=== PATIENT | female | born 1955 | race Caucasian/White ===

== ENCOUNTER 2022-01-29 12:07 | Emergency (ER) | payer BC, SELFPAY ==
[2022-01-29 12:13] VITALS: BP 180/99; PULSE 96; RESP 20; TEMP 35.9; O2SAT 96; BMI 41.2
--- NOTE | 2022-01-29 12:14 | CRLHL7_ITS ---
For Patients: As a result of the Century Cures Act, medical imaging exams and procedure reports are released immediately into your electronic medical record. You may view this report before your referring provider. If you have questions, please contact your health care provider. Indication: Injury and pain Technique: Right ankle 3 views. Comparison: None Findings: Plantar and posterior calcaneal spurs. Acute obliquely oriented fracture of the distal fibula. Mild degenerative changes. Lateral soft tissue swelling. Impression: Acute fracture of the distal fibula. Dictated by Patrick Lorenzana MD @ 01/29/2022 1:14:52 PM (Electronically Signed)
--- NOTE | 2022-01-29 12:14 | CRLHL7_ITS ---
For Patients: As a result of the Cures Act, medical imaging exams and procedure reports are released immediately into your electronic medical record. You may view this report before your referring provider. If you have questions, please contact your health care provider. Indication: Fall, pain Technique: Two views right knee Findings/Impression: Hardware from a right total knee arthroplasty is in satisfactory position. Bone alignment is normal. No sign of acute fracture. Postop changes are within normal limits. Dictated by Patrick Lorenzana MD @ 01/29/2022 1:15:35 PM (Electronically Signed)
--- NOTE | 2022-01-29 12:16 | ED.GENADULT ---
HPI - General Adult General Chief complaint: Extremity Pain/Injury, Lower Stated complaint: fall/right ankle knee injuries Time Seen by Provider: 01/29/22 12:09 Source: patient Mode of arrival: ambulatory Limitations: no limitations History of Present Illness HPI narrative: 66-year-old female presenting today with ankle and knee pain. She states that she slipped in her driveway and fell, leg twisting underneath her. Patient had total knee replacement on the right in August of this year. She is complaining of some mild knee pain as she landed on her knee but mostly her ankle is bothering her. Pain is located mostly on the lateral side. She denies hitting her head or having injuries to the upper extremities. She is not on any blood thinners. Related Data Home Medications Medication Instructions Recorded Confirmed No Known Home Medications 01/29/22 01/29/22 Allergies Allergy/AdvReac Type Severity Reaction Status Date / Time No Known Drug Allergies Allergy Verified 11/09/21 13:29 Review of Systems Status of ROS: Reports: 6 or more systems reviewed and unremarkable except as noted in History and below [facility] Medical History Anemia Chest pain Hiatal hernia History of trigger finger Low vitamin D level Partial seizure Sleep apnea Surgical History H/O blepharoplasty H/O hernia repair H/O tubal ligation History of appendectomy S/P right knee arthroscopy Status post total knee replacement, right Social History Smoking Status: Never smoker Do you use any of these nicotine containing products: None Second hand tobacco smoke exposure: No How often do you have a drink containing alcohol: 2-3 times a week How many standard drinks containing alcohol do you have on a typical day: 1 or 2 AUDIT-C Alcohol total score: 3 Non-prescribed substance use: denies use Exam Narrative: Exam Narrative: Alert and oriented. Answers questions appropriately. Mood and affect are appropriate. HEENT: Normocephalic atraumatic. Pupils are equally round reactive to light. Extraocular muscles are intact. Conjunctivae are moist without any icterus noted. Extremities: She does have some swelling over the right lateral ankle with tenderness over the lateral malleolus. She has a abrasion over the right knee with some tenderness just right over the abrasion however she has full range of motion at the knee without significant discomfort. No valgus or varus laxity. No pain over the batres or calf. No obvious bruising over the ankle. Const: Vital Signs, click to edit/add: Vital Signs - 24 hr 01/29/22 12:13 Temperature 96.7 F L Pulse Rate [Pulse Oximeter] 96 Respiratory Rate 20 Blood Pressure [Ri ght Upper Arm] 180/99 H Pulse Oximetry 96 Oxygen Delivery Me thod Room Air Course Course Hospital Course: Ankle x-ray, read by me, shows a distal fibular fracture. Knee x-ray, read by me, does not show any acute pathology. Vital Signs Vital signs: Initial Vital Signs Temperature 96.7 F L 01/29/22 12:13 Temperature Source Temporal Artery Scan 01/29/22 12:13 Pulse Rate 96 01/29/22 12:13 Respiratory Rate 20 01/29/22 12:13 Blood Pressure 180/99 H 01/29/22 12:13 Blood Pressure Mean 126 01/29/22 12:13 Blood Pressure Position Semi-Fowlers 01/29/22 12:13 Pulse Oximetry 96 01/29/22 12:13 Oxygen Delivery Method 01/29/22 12:13 Vital Signs Temperature 96.7 F L 01/29/22 12:13 Pulse Rate 96 01/29/22 12:13 Respiratory Rate 20 01/29/22 12:13 Blood Pressure 180/99 H 01/29/22 12:13 Pulse Oximetry 96 01/29/22 12:13 Oxygen Delivery Method 01/29/22 12:13 Temperature 96.7 F L 01/29/22 12:13 Pulse Rate 96 01/29/22 12:13 Respiratory Rate 20 01/29/22 12:13 Blood Pressure 180/99 H 01/29/22 12:13 Pulse Oximetry 96 01/29/22 12:13 Oxygen Delivery Method 01/29/22 12:13 Medical Decision Making MDM Narrative Medical decision making narrative: 66-year-old female with a distal fibular fracture. Patient will be placed in a cam walker. She will follow up with Ortho next week. Weight-bearing as tolerated. We discussed symptomatic treatment with elevation, icing and ibuprofen or Tylenol as needed. Patient had no other questions Imaging Data Ankle x-ray: Attestation: I have reviewed the pertinent imaging results. Radiologist's impression: Right ankle 3 views. Comparison: None Findings: Plantar and posterior calcaneal spurs. Acute obliquely oriented fracture of the distal fibula. Mild degenerative changes. Lateral soft tissue swelling. Impression: Acute fracture of the distal fibula. Knee x-ray: Attestation: I have reviewed the pertinent imaging results. Radiologist's impression: Two views right knee Findings/Impression: Hardware from a right total knee arthroplasty is in satisfactory position. Bone alignment is normal. No sign of acute fracture. Postop changes are within normal limits. Discharge Plan Discharge Clinical Impression: Fracture of distal end of fibula Patient Disposition: Home, Self-Care Condition: Stable Additional Instructions: Wear your Cam boot at all times-this will provide comfort. Today you can remove your boot to elevate the foot and ice it. Do not apply ice directly to skin. Ice for 20 minutes at a time 3-4 times today. Follow-up with orthopedic surgeon next week. Prescriptions: No Action No Known Home Medications Follow Up/Referrals: Latanya Ken PA-C [Primary Care Provider] - Stand Alone Forms: [employer] Info Instructions
== END 2022-01-29 14:03 | disposition home or self-care (01) ==
PROVIDERS: Emergency Provider Family Medicine; PCP Physician Assistant Medical
DX: S82.831A Other fracture of upper and lower end of right fibula, initial encounter for closed fracture (principal); X50.1XXA Overexertion from prolonged static or awkward postures, initial encounter
CPT/HCPCS: 73560; 73610; 99283; 99284

== ENCOUNTER 2022-02-03 11:58 | Outpatient (CLI) | payer BC, SELFPAY ==
[2022-02-03 15:05] LABS: SARS PCR* Negative SARS-CoV-2 (Negative)
== END 2022-02-03 11:59 | disposition home or self-care (01) ==
LOC: FBOREF 11:59
PROVIDERS: PCP Physician Assistant Medical; Visit Provider Physician Assistant
DX: Z20.822 Contact with and (suspected) exposure to COVID-19 (principal); Z11.52 Encounter for screening for COVID-19
CPT/HCPCS: 87635

== ENCOUNTER 2022-02-04 10:54 | Day surgery (SDC) | payer BC, SELFPAY ==
[2022-02-04] VITALS (14 sets, daily range): BP systolic 97–172; BP diastolic 65–96; PULSE 59–93; RESP 16–20; TEMP 36.3–37.4; O2SAT 95–96; BMI 41.1
[2022-02-04] MEDS: LACTATED RINGERS 1000 ML 1,000 ML 100 ML IV ×2 (10:00→15:05)
[2022-02-04] MEDS: fentaNYL 100 MCG/2 ML inj IVP (12:21)
[2022-02-04] MEDS: MIDAZOLAM HCL 1 MG/ML inj IVP (12:21)
--- NOTE | 2022-02-04 12:27 | SUR.PREOP ---
TIME?OUT:?1220 PT/RN/MDA?VERIFICATION?OF?SURGICAL?SITE,?PROCEDURE,?AND?CONSENT OBTAINED?PRIOR?TO?INVASIVE?PROCEDURE.
[2022-02-04] MEDS: CEFAZOLIN 2 GM INJ IVP (12:35)
--- NOTE | 2022-02-04 13:00 | CRLHL7_ITS ---
For Patients: As a result of the Cures Act, medical imaging exams and procedure reports are released immediately into your electronic medical record. You may view this report before your referring provider. If you have questions, please contact your health care provider. Indication: ORIF right ankle Technique: Three fluoroscopic images of the right ankle. Fluoroscopic time 1 minute 6.9 seconds. IMPRESSION: Fluoroscopic guidance for open reduction internal fixation of distal fibular fracture. Dictated by Patrick Lorenzana MD @ 02/05/2022 8:57:51 AM (Electronically Signed)
--- NOTE | 2022-02-04 13:41 | W.ANESCHARGE ---
Anesthesia Charges Start Date/Time Anesthesia Start Date: 02/04/22 Anesthesia Start Time: 12:26 Stop Date/Time Anesthesia Stop Date: 02/04/22 Anesthesia Stop Time: 13:52 Summary Emergency: No
--- NOTE | 2022-02-04 13:59 | P.ORPRC_ITS ---
Procedure Note Date of procedure: 02/04/22 Procedure: PREOPERATIVE DIAGNOSIS: Right ankle Ulrich B Fracture POSTOPERATIVE DIAGNOSIS: Right ankle Ulrich B Fracture NAME OF OPERATION: ORIF SURGEON: Chester Kennedy MD [employer] TECHNICIAN: Leslye Najera PA-C ANESTHESIA: Spinal plus popliteal block ESTIMATED BLOOD LOSS: 0 mL COMPLICATIONS: None SPECIMENS: None DRAINS: None PREOPERATIVE ANTIBIOTICS: Ancef 2 g INDICATIONS: The patient is a 66-year-old who sustained a right ankle fracture, with widening of the medial mortise on stress view. ORIF was recommended. The risks, benefits and expected outcomes were discussed in detail. These included but were not limited to: Infection, bleeding, injury to blood vessel or nerve, venous thromboembolism. All questions were answered to their satisfaction. Use of an contact lens assistant was necessary throughout the case for patient positioning and safety, soft tissue retraction and closure. PROCEDURE: A popliteal block was placed by anesthesia. Spinal anesthesia was administered. The lower extremity was prepped and draped in the usual sterile fashion. A percutaneous incision was made over the anterior and posterior aspect of the fibula, at the level of the fracture. A reduction clamp was placed. Longitudinal traction, internal rotation and adduction of the distal fragment allowed reduction. The guide pin was placed in the center of the distal fragment of the fibula, percutaneously. Its placement was confirmed with the image intensifier in multiple views. A stab incision was made around the guide pin. The opening Reamer was used. The guide pin was removed. The longer, flexible guide pin was placed across the fracture, engaging the canal of the proximal fragment. The opening reamer was placed again, past the fracture site. The 3.2 mm reamer was used in the proximal fragment. We placed the Arthrex 3 mm x 130 mm intramedullary nail. The talons were deployed. We placed 2 screws in the distal fragment. Abduction stress was placed on the foot. There is no widening of the syndesmosis on the AP and mortise views. The hood maker was removed, the end cap was placed. Implants were imaged in the AP, mortise and lateral views and were felt to be well placed with an excellent reduction. The talus is nicely reduced under the tibial plafond. The wounds were irrigated with normal saline. The contact lens assistant closed the skin with a 3-0 nylon in a simple interrupted fashion. The contact lens assistant placed a dry dressing and short leg Oni Gonzalez splint. Sponge and needle counts were correct x 2. The patient tolerated the procedure well. There were no apparent complications. They were carefully transferred to the hospital bed and taken to the postanesthesia care unit in satisfactory condition. PLAN: The patient will be discharged to home. They will remain strict nonweightbearing on the lower extremity. They will continue to work on ice and elevation. They will follow up in the office in 2 weeks for a wound check and three views of the ankle out of the splint, prior to being seen, in preparation for a CAM walker, early weight-bearing and physical therapy.
--- NOTE | 2022-02-04 13:59 | W.ANESCHARGE ---
Anesthesia Charges Start Date/Time Anesthesia Start Date: 02/04/22 Anesthesia Start Time: 12:26 Stop Date/Time Anesthesia Stop Date: 02/04/22 Anesthesia Stop Time: 13:52 Summary Emergency: No
--- NOTE | 2022-02-04 14:10 | P.NB_ITS ---
Nerve Block Nerve Block Time Seen by Provider: :19 Date Seen: 02/04/22 Type of block requested by surgeon for post-operative analgesia: adductor canal Side: right Time out performed: Yes Verification of patient name: Yes Verification of date of : Yes Site marking: site marked Name of person performing procedure: Anival Continuous monitoring Was continuous monitoring of O2 sat, B/P, cardiac cath lab radiology technologist, recorded every 15 minutes?: Yes Procedure Checklist: sterile prep, needles and gloves Ultrasound guided. Images saved: Yes Medications given in 5ml increments after negative aspiration: Ropivicaine %: 0.5 mL: 20 Needle gauge: 20 Patient tolerated procedure well: Yes Additional comments: Needle noted adjacent to nerve Block Charges Block Charge (with Pro Fee): Femoral Nerve Use of Ultrasound Machine for Block: Yes- US Guidance/pain block
--- NOTE | 2022-02-04 14:10 | P.NB_ITS ---
Nerve Block Nerve Block Time Seen by Provider: :19 Date Seen: 02/04/22 Type of block requested by surgeon for post-operative analgesia: popliteal Side: right Time out performed: Yes Verification of patient name: Yes Verification of date of : Yes Site marking: site marked Name of person performing procedure: Anival Continuous monitoring Was continuous monitoring of O2 sat, B/P, monitoring and evaluation advisor, recorded every 15 minutes?: Yes Procedure Checklist: sterile prep, needles and gloves Ultrasound guided. Images saved: Yes Medications given in 5ml increments after negative aspiration: Ropivicaine %: 0.5 mL: 20 Needle gauge: 22 Patient tolerated procedure well: Yes Additional comments: Needle noted adjacent to nerve Block Charges Block Charge (with Pro Fee): Sciatic Nerve Use of Ultrasound Machine for Block: Yes- US Guidance/pain block
--- NOTE | 2022-02-04 14:30 | SUR.PHASEI ---
patient met discharge criteria per anesthesia
[2022-02-04] MEDS: ONDANSETRON 2 MG/ML inj 4 MG IVP (14:42)
== END 2022-02-04 15:45 | disposition home or self-care (01) ==
PROVIDERS: PCP Physician Assistant Medical; Visit Provider Orthopaedic Surgery
PROC: (CPT 27792; principal; 2022-02-04 13:00)
DX: S82.891A Other fracture of right lower leg, initial encounter for closed fracture (principal)
CPT/HCPCS: 27792; 01480; 64445; 64447; 73600; 76942; 97161; A4580; C1713; J0690; J2250; J2400; J2405; J2704; J2795; J3010; J7120

== ENCOUNTER 2022-12-22 15:00 | Outpatient (CLI) | payer BC, SELFPAY | END 2022-12-22 15:01 | disposition home or self-care (01) | LOC: FRMREF 15:01 | PROVIDERS: PCP Physician Assistant Medical; Visit Provider Physician Assistant Medical | DX: Z00.00 Encounter for general adult medical examination without abnormal findings (principal); E78.5 Hyperlipidemia, unspecified; R79.89 Other specified abnormal findings of blood chemistry | CPT/HCPCS: 80053; 80061; 82306; 83690; 84443 ==

== ENCOUNTER 2023-01-18 13:19 | Outpatient (CLI) | payer BC, SELFPAY ==
--- NOTE | 2023-01-18 13:30 | CRLHL7_ITS ---
For Patients: As a result of the Century Cures Act, medical imaging exams and procedure reports are released immediately into your electronic medical record. You may view this report before your referring provider. If you have questions, please contact your health care provider. DXA BONE MINERAL DENSITY STUDY Reason for exam: Asymptomatic menopausal state. Current height (in): 63.5. Weight (lb): 240. Menopause age: 53. Ethnicity: White. 1. Have you had a previous hip or vertebral fracture? No. 2. Have you had any fractures during your adult life which did not result from significant trauma (e.g., auto accident)? No. 3. Did either of your parents have a hip fracture? No. 4. Do you smoke? No. 5. Have you ever taken Glucocorticoids? No. 6. Do you have rheumatoid arthritis? No. 7. Do you have secondary osteoporosis? No. 8. Do you drink 3 or more alcoholic drinks per day? No. 9. Are you being treated for osteoporosis? No. 10. Have you ever taken any of the following medications: Actonel, Evista, Fosamax, Miacalcin, Reclast, Boniva, Forteo, HRT (i.e., estrogen/hormone therapy), Protelos, Prolia, Vitamin D, Calcium, other ??? please specify. ANSWER: Yes, vitamin D, HRT, and calcium. 11. Do you have any of the following medical conditions: Anorexia or bulimia, asthma or emphysema, end stage renal disease, hyperparathyroidism, any seizure disorders, cancer, inflammatory bowel diseases, hysterectomy, other ??? please specify. ANSWER: No. 12. What was your maximum height (inches)? 64. 13. Do you perform weight bearing exercise regularly? Yes. 14. Do you regularly consume dairy products? Yes. 15. Do you drink caffeinated beverages? Yes. If female: 16. At what age did your period start? 13. 17. Are you premenopausal? No. 18. How many full-term pregnancies have you had? 4. 19. Have you ever missed your period for more than 6 months in a row (not including or menopause)? No. TECHNIQUE: Bone mineral density study was performed using the Precog. FINDINGS: The results of the study expressed as bone mineral density (BMD) are as follows: Lumbar spine L1, L3, L4: BMD: 0.906 g/cm2. T-score: -1.3. Z-score: 0.6 Neck Left: BMD: 0.905 g/cm2. T-score: 0.5. Z-score: 2.1 Right: BMD: 0.835 g/cm2. T-score: -0.1. Z-score: 1.5 Total Left: BMD: 1.083 g/cm2. T-score: 1.2. Z-score: 2.5 Right: BMD: 0.937 g/cm2. T-score: -0.0. Z-score: 1.3 IMPRESSION: Osteopenia. FRAX 10-year Fracture Risk Major Osteoporotic Fracture: 6.2% Hip Fracture: 0.2% Reported Risk Factors: [place] () Neck BMD=0.835, BMI= 41.8 Patrick Lorenzana M.D. Diagnostic Radiologist [email or web address] HALIMA/codie mackay/Dictated by: Patrick Lorenzana MD @ 01/19/2023 3:22:00 PM (Electronically Signed)
== END 2023-01-18 13:20 | disposition home or self-care (01) ==
PROVIDERS: PCP Physician Assistant Medical; Visit Provider Physician Assistant Medical
DX: M85.89 Other specified disorders of bone density and structure, multiple sites (principal); Z78.0 Asymptomatic menopausal state
CPT/HCPCS: 77080

== ENCOUNTER 2023-03-25 07:59 | Outpatient (CLI) | payer BC, MEDICARE, SELFPAY ==
--- NOTE | 2023-03-25 08:15 | CRLHL7_ITS ---
For Patients: As a result of the Century Cures Act, medical imaging exams and procedure reports are released immediately into your electronic medical record. You may view this report before your referring provider. If you have questions, please contact your health care provider. BILATERAL SCREENING MAMMOGRAM WITH COMPUTER-AIDED DETECTION AND TOMOSYNTHESIS TECHNIQUE: CC and MLO views were obtained. These mammographic images have been obtained using full-field digital technique. These mammographic images were interpreted with the benefit of computer-aided detection. Breast Tomosynthesis was used in this interpretation. COMPARISON FILM: 03/09/19, 11/30/16, 03/24/15. FINDINGS: There are scattered areas of fibroglandular density. IMPRESSION: There is no radiographic evidence for malignancy. ASSESSMENT: BI-RADS Category 1: Negative RECOMMENDATION: Routine screening mammogram in 1 year. A lay language report of this examination will be provided to the patient. Patrick Lorenzana M.D. Diagnostic Radiologist [email or web address] SP/Dictated by: Ptarick Lorenzana MD @ 03/25/2023 9:53:00 AM (Electronically Signed)
== END 2023-03-25 08:00 | disposition home or self-care (01) ==
LOC: MAMMO 08:02
PROVIDERS: PCP Physician Assistant Medical; Visit Provider Physician Assistant Medical
DX: Z12.31 Encounter for screening mammogram for malignant neoplasm of breast (principal)
CPT/HCPCS: 77063; 77067

== ENCOUNTER 2023-12-26 07:50 | Outpatient (CLI) | payer BC, SELFPAY | END 2023-12-26 07:51 | disposition home or self-care (01) | LOC: FRMREF 07:52 | PROVIDERS: PCP Physician Assistant Medical; Visit Provider Physician Assistant Medical | DX: E78.5 Hyperlipidemia, unspecified (principal); M85.80 Other specified disorders of bone density and structure, unspecified site; R79.89 Other specified abnormal findings of blood chemistry; Z83.49 Family history of other endocrine, nutritional and metabolic diseases | CPT/HCPCS: 80053; 80061; 82306; 84443; 86376 ==

== ENCOUNTER 2024-10-18 09:02 | Outpatient (CLI) | payer BC, SELFPAY ==
--- NOTE | 2024-10-18 09:15 | MR_ITS ---
[address] [address] Phone:?[phone] Fax:?[phone] Referring Physician Information: Gloria Cleary [address] [facility] [address] Phone:?[phone] Fax:?[phone] Patient:?Peace Maldonado D.O.B:?1955 Sex:?Female Phone:?[phone] [facility] MRN:[id number] Exam Date:?10/18/2024 EXAM: MRI of the RIGHT HIP, without contrast CLINICAL HISTORY: Right hip pain COMPARISONS: Radiographs dated 10/08/2024 TECHNICAL: MR sequences of the right hip: Axials: PD FS Axial oblique: PD Coronals: PD, T2 Coronal pelvis: T1 and STIR Sagittals: PD and T2 CONTRAST: None FINDINGS: Pelvis osseous structures: Sacrum: No fracture or destructive osseous lesion is seen of the imaged portions of the sacrum. Sacroiliac joints: No convincing evidence of sacroiliitis of the imaged portions of the sacroiliac joints. Pubic rami: Unremarkable. Symphysis pubis: Small osteophytes are noted about the pubic symphysis. There is no evidence of acute osteitis pubis. Lumbar spine: Mild multilevel degenerative disc disease is noted of the lower lumbar spine which is incompletely evaluated on this examination. This could be further evaluated with dedicated MRI, if clinically indicated. Labrum: The labrum is suboptimally evaluated on a nonarthrographic study. There is heterogeneously increased signal noted throughout the anterosuperior and posterior superior labrum, likely compatible with labral degeneration. This is of unlikely clinical significance. Hip joint: Physiologic amount of joint fluid. Diffuse articular cartilage thinning is noted throughout the right hip, compatible with grade II to III chondromalacia. There is full-thickness articular cartilage loss along the posterior aspect of the right hip with subcortical cystic changes noted within the acetabulum and the femoral head with mild patchy edema within the femoral head and acetabulum. Proximal femur: No fracture or avascular necrosis. Subcortical cysts are noted along the posterior aspect of the right femoral head secondary to overlying full-thickness articular cartilage loss. A rim of osteophytes is noted at the femoral head neck junction. Acetabulum: Subcortical cysts and patchy bone marrow edema are noted along the posterior acetabulum secondary to overlying full-thickness articular cartilage loss. Ligamentum teres: Thinning of the ligamentum teres is likely degenerative in nature. Myotendinous structures: Gluteus abductors: The gluteus minimus and medius tendons are unremarkable. Rectus abdominis-adductor longus aponeurosis, adductors, and rectus abdominis: Unremarkable. Hamstrings: Unremarkable. Flexors: The iliopsoas and rectus femoris tendons are intact. Quadratus femoris muscle: Unremarkable. Piriformis muscle: Unremarkable. Gluteal aponeurotic fascia and IT band: Unremarkable. Pelvic soft tissues: Unremarkable. IMPRESSION: 1. 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 There is full-thickness articular cartilage loss along the posterior aspect of the right femoral head and acetabulum with subjacent subcortical cystic changes within the femoral head and acetabulum with patchy surrounding bone marrow edema. In addition, there is suspected degenerative type tearing of the labrum. 2. Myotendinous structures about the right hip are intact and unremarkable. 3. No evidence of fracture of the pelvis or right hip. 4. Mild multilevel degenerative disc disease is noted of the lower lumbar spine which is incompletely evaluated on this examination. This could be further evaluated with dedicated MRI, if clinically indicated. AW Electronically signed on 10/18/2024 2:47:[address] JOEL MARCANO M.D.
== END 2024-10-18 09:03 | disposition home or self-care (01) ==
LOC: MRI 09:04
PROVIDERS: PCP Physician Assistant Medical; Visit Provider Physician Assistant
DX: M25.551 Pain in right hip (principal); M16.11 Unilateral primary osteoarthritis, right hip; M94.251 Chondromalacia, right hip; M51.369 Other intervertebral disc degeneration, lumbar region without mention of lumbar back pain or lower extremity pain
CPT/HCPCS: 73721